=== PATIENT | male | born 1980 | race Caucasian/White ===

== ENCOUNTER 2018-07-09 16:53 | Emergency (ER) | payer BC ==
[~2018-07-09] VITALS: Ht 177.8 cm; Wt 93.0 kg
[~2018-07-09 16:53] MED LIST: ACET325 PO; CODACE30 PO; Coumadin5 MG PO; LOVENOX150 MG/1 M SC; Peridex480 ML SS; Prilosec Otc20 MG PO; RANI150 PO; Veetids 500500 MG PO
== END 2018-07-09 18:31 | disposition home or self-care (01) ==
LOC: ER 16:53
DX: M79.662 Pain in left lower leg (principal); F17.210 Nicotine dependence, cigarettes, uncomplicated
CPT/HCPCS: 93971; 99283-25

== ENCOUNTER 2019-07-19 21:28 | Emergency (ER) | payer BC ==
[~2019-07-19] VITALS: Ht 180.3 cm; Wt 104.3 kg
[2019-07-19] MEDS ORDERED: IBU600 MG PO (23:38)
== END 2019-07-19 23:56 | disposition home or self-care (01) ==
LOC: ER 21:28
DX: M79.661 Pain in right lower leg (principal); Z87.891 Personal history of nicotine dependence
CPT/HCPCS: 93971; 99283-25

== ENCOUNTER 2020-08-01 12:23 | Emergency (ER) | payer BC ==
[~2020-08-01] VITALS: Ht 172.7 cm; Wt 104.3 kg
[~2020-08-01 12:23] MED LIST changes: +IBU600 MG PO
[2020-08-01 13:30] LABS: BASOPHILS ABSOLUTE AUTO 0.03 K/mm3 (0.00-0.23); BASOPHILS PERCENT AUTO 0 % (0-2); EOSINOPHILS ABSOLUTE AUTO 0.02 K/mm3 (0.00-0.68); EOSINOPHILS PERCENT AUTO 0 % (0-6); Hematocrit 49.7 % (37.0-53.0); Hemoglobin 16.3 g/dL (13.5-17.5); IMMATURE GRAN ABSOLUTE AUTO 0.04 K/mm3 (0.00-0.10); IMMATURE GRAN PERCENT AUTO 0 % (0-1); LYMPHOCYTES ABSOLUTE AUTO 1.19 K/mm3 (0.84-5.20); LYMPHOCYTES PERCENT AUTO 8 % (21-46); MONOCYTES ABSOLUTE AUTO 0.83 K/mm3 (0.16-1.47); MONOCYTES PERCENT AUTO 6 % (4-13); Mean Corpuscular HGB 29.5 pg (26.0-34.0); Mean Corpuscular HGB Conc 32.8 g/dL (31.5-36.5); Mean Corpuscular Volume 90 fL (80-100); Mean Platelet Volume 11.2 fL (9.1-12.4); NEUTROPHILS ABSOLUTE AUTO 13.05 K/mm3 (1.96-9.15); NEUTROPHILS PERCENT AUTO 86 % (41-73); Platelet Count 219 K/mm3 (150-400); RDW Coefficient Variation 12.8 % (11.7-14.2); Red Blood Cell Count 5.53 M/mm3 (4.30-5.90); White Blood Cell Count 15.16 K/mm3 (4.00-11.30)
[2020-08-01 13:50] LABS: Alanine Aminotransfer (ALT/SGP 73 U/L (12-78); Albumin, Blood 4.2 g/dL (3.4-5.0); Albumin/Globulin Ratio 1.1 (0.8-1.8); Alk Phos 80 U/L (50-136); Anion Gap 8 mmol/L (6-16); Aspartate Aminotrans (AST/SGOT 22 U/L (12-37); Bilirubin, Total 0.3 mg/dL (0.1-1.0); Blood Urea Nitrogen 26 mg/dL (8-24); Bun/Creatinine Ratio 21.7 (12.0-20.0); CO2, Blood 25 mmol/L (21-32); Chloride, Blood 103 mmol/L (98-108); Globulin, Blood 3.9 g/dL (2.2-4.0); Glomerular Filtration Rate >60 (60-); Glucose, Blood 199 mg/dL (70-99); Potassium, Blood 4.1 mmol/L (3.5-5.5); Sodium, Blood 136 mmol/L (136-145); Total Protein, Blood 8.1 g/dL (6.4-8.2)
[2020-08-01 15:41] LABS: Source, Urine Clean Catch
[2020-08-01 15:45] LABS: Appearance, Urine Clear (Clear); Bilirubin, Urine Neg (Neg); Blood, Urine 1+ (Neg); Color, Urine Yellow (P-Yellow); Glucose Qualitative, Urine 3+ (Neg); Ketones, Urine 2+ (Neg); Leukocyte Esterase, Urine Neg (Neg); Nitrite, Urine Neg (Neg); Protein, Urine 2+ (Neg); Specific Gravity, Urine 1.025 (1.003-1.022); Urobilinogen, Urine 1+ (Normal)
[2020-08-01 16:01] LABS: Red Blood Cells, Urine 0-2 /hpf (0-2); Squamous Epithelial Cells Rare /hpf (Few); White Blood Cells, Urine 0-2 /hpf (0-5)
[2020-08-01 16:02] LABS: Bacteria Rare /hpf
[2020-08-01] MEDS ORDERED: HYDR1TAB94 PO (16:26)
[2020-08-01] MEDS ORDERED: Flomax0.4 MG PO (16:26)
== END 2020-08-01 16:40 | disposition home or self-care (01) ==
LOC: ER 12:23
PROVIDERS: Physician Assistant
DX: N13.2 Hydronephrosis with renal and ureteral calculous obstruction (principal); F17.210 Nicotine dependence, cigarettes, uncomplicated; Z79.899 Other long term (current) drug therapy
CPT/HCPCS: 36415; 74176; 80053; 81001; 83690; 85025; 96374; 96375; 99284-25; J1170; J1885; J2405; J7030

== ENCOUNTER 2022-12-14 20:44 | Emergency (ER) | payer BC ==
[~2022-12-14] VITALS: Ht 177.8 cm; Wt 102.1 kg
[~2022-12-14 20:44] MED LIST changes: +Flomax0.4 MG PO; +HYDR1TAB94 PO
== END 2022-12-14 23:09 | disposition home or self-care (01) ==
LOC: ER 20:44
DX: M79.605 Pain in left leg (principal); F17.210 Nicotine dependence, cigarettes, uncomplicated; Z88.0 Allergy status to penicillin; Z79.899 Other long term (current) drug therapy
CPT/HCPCS: 93971

== ENCOUNTER 2023-09-16 16:35 | Emergency (ER) | payer BC ==
[~2023-09-16] VITALS: Ht 177.8 cm; Wt 102.1 kg
[2023-09-16 16:50] VITALS: BP 141/87
[2023-09-16] MEDS ORDERED: CYCL10 PO (18:36)
== END 2023-09-16 18:48 | disposition home or self-care (01) ==
LOC: ER 16:35
DX: M54.41 Lumbago with sciatica, right side (principal); F17.210 Nicotine dependence, cigarettes, uncomplicated; Z88.0 Allergy status to penicillin
CPT/HCPCS: 96372; 99283-25; A9270; J1885

== ENCOUNTER → 2024-06-10 | Outpatient (CLI) | payer BC ==
[~2024-06-10] MED LIST changes: +CYCL10 PO
== END ==
LOC: LAB SHORT 16:20 → LAB 16:20
DX: L03.031 Cellulitis of right toe (principal)
CPT/HCPCS: 87070; 87075; 87077; 87205